=== PATIENT | female | born 1975 | race Caucasian/White ===

== ENCOUNTER 2016-10-24 12:41 | Emergency (ER) | payer OTHER ==
[2016-10-24 12:56] VITALS: TEMP 98.1
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
[2016-10-24] MEDS ORDERED: LET GEL TOPICAL 1 EA SYR TP ONE (13:50)
[2016-10-24 15:01] VITALS: RESP 16
[2016-10-24 15:10] VITALS: BP 122/79; PULSE 60; O2SAT 97
== END 2016-10-24 15:09 | disposition home or self-care (01) ==
DX: S93.402A Sprain of unspecified ligament of left ankle, initial encounter (principal); S49.92XA Unspecified injury of left shoulder and upper arm, initial encounter; V18.2XXA Unspecified pedal cyclist injured in noncollision transport accident in nontraffic accident, initial encounter
CPT/HCPCS: A4565

== ENCOUNTER → 2017-03-23 | Outpatient (CLI) | payer OTHER | LOC: FIMAGING 12:48 | PROVIDERS: ATTEND Obstetrics & Gynecology | DX: Z12.31 Encounter for screening mammogram for malignant neoplasm of breast (principal) | CPT/HCPCS: G0202 ==

== ENCOUNTER → 2018-05-09 | Outpatient (CLI) | payer OTHER | LOC: FIMAGING 08:13 | PROVIDERS: ATTEND Obstetrics & Gynecology | DX: Z12.31 Encounter for screening mammogram for malignant neoplasm of breast (principal) ==

== ENCOUNTER 2018-09-23 00:06 | Observation (INO) | payer OTHER | END 2018-09-23 13:30 | disposition home or self-care (01) | LOC: FOB 02:23 ==